=== PATIENT | female | born 1965 | race Hispanic/Latino ===

== ENCOUNTER 2019-04-30 09:06 | Emergency (ER) | payer BC, SELFPAY ==
[2019-04-30] MEDS ORDERED: Ondansetron ODT 4 MG TAB ONE (09:24)
--- NOTE | 2019-04-30 09:50 | CT ---
CT of the paranasal sinuses: 04/30/2019 COMPARISON: None HISTORY: Right maxillary soft tissue swelling TECHNIQUE: Axial CT imaging obtained at 2.5 mm intervals through the paranasal sinuses without contra st. Coronal and sagittal reformatted imaging obtained. FINDINGS: The maxillary teeth are not fully imaged on this examination, limiting detailed assessment. The frontal sinuses, maxillary sinuses, sphenoid sinuses, and ethmoid air cells are clear. The imaged mastoid air cells are unremarkable. Imaged brain parenchyma is grossly unremarkable. There is soft tissue swelling anterior to the right maxillary sinus, particularly medially, extending into the infraorbital region. Exact etiology is uncertain as the face is not fully imaged on this exam. There is a suggestion of a gingival based small hypodense fluid collection anterior to the righ t paramidline maxilla on axial image 5 measuring 8-9 mm, which may represent a small gingival based abscess. Exact etiology is uncertain but this may be on the basis of an odontogenic infection as ther e appears to be a periapical abscess involving the right maxillary bicuspid, best seen on axial image 4. No acute fracture or evidence of dislocation is seen. IMPRESSION: Soft tissue swelling seen anterior to the maxillary sinus on the right medially. Probable subcentimeter gingival based ventral abscess, likely on the basis of odontogenic infection as described above.
== END 2019-04-30 10:05 | disposition home or self-care (01) ==
LOC: NAV ERS 09:06
DX: K04.7 Periapical abscess without sinus (principal); F41.9 Anxiety disorder, unspecified
CPT/HCPCS: Q0162